=== PATIENT | female | born 1980 | race Caucasian/White ===

== ENCOUNTER 2016-09-17 21:23 | Emergency (ER) | payer OTHER ==
[2016-09-17 22:14] VITALS: BMI 24.7
[2016-09-17 22:17] VITALS: BP 124/69; PULSE 76; RESP 18; TEMP 98.3; O2SAT 98
[2016-09-17] MEDS ORDERED: Tmp-Smz 800 mg-160 mg DS Tab PO STA (23:10)
--- NOTE | 2016-09-17 23:11 | ED PDOC ---
Arrival/HPI <Snehal Anaya - Last Filed: 09/18/16 00:20> - General Historian: Patient - History of Present Illness Time/Duration: 1 week Symptom Onset: Gradual Symptom Course: Worsening Quality: Pressure, Throbbing Severity Level: 7 <Sahra Matute - Last Filed: 09/18/16 01:13> - General Chief Complaint: Abnormal Skin Integrity Time Seen by Provider: 09/17/16 23:10 - History of Present Illness Narrative History of Present Illness (Text): 09/18/16 00:36 36yr old female presents today with 1 week history of left axillary abscess. pt denies fever/chills. pt states lump started as small pimple and has gradually increased. no medications taken for pain at home. pt was seen by pmd 3 days ago and given rx for bactrim but she didnt take the medication. denies numbness, weakness, tingling in the extremity. no other complaints. (Sahra Matute) Past Medical History - Provider Review Nursing Documentation Reviewed: Yes - Travel History Have you recently traveled outside [place] w/in the past 3 mons?: No - Infectious Disease Hx of Infectious Diseases: None - Tetanus Immunization Tetanus Immunization: Unknown - Cardiac Hx Cardiac Disorders: No - Pulmonary Hx Respiratory Disorders: No - Neurological Hx Neurological Disorder: No - HEENT Hx HEENT Disorder: No - Renal Hx Renal Disorder: No - Endocrine/Metabolic Hx Endocrine Disorders: Yes Hx Hypothyroidism: Yes - Hematological/Oncological Hx Blood Disorders: No - Integumentary Hx Dermatological Disorder: No - Musculoskeletal/Rheumatological Hx Musculoskeletal Disorders: No - Gastrointestinal Hx Gastrointestinal Disorders: No - Genitourinary/Gynecological Hx Genitourinary Disorders: No - Psychiatric Hx Psychophysiologic Disorder: No Hx Substance Use: No - Surgical History Hx Section: Yes - Anesthesia Hx Anesthesia: Yes Hx Anesthesia Reactions: No Hx Malignant Hyperthermia: No <Sahra Matute - Last Filed: 09/18/16 01:13> Family/Social History - Physician Review Nursing Documentation Reviewed: Yes Family/Social History: Unknown Family HX Smoking Status: Never Smoked Hx Alcohol Use: No Hx Substance Use: No <Sahra Matute - Last Filed: 09/18/16 01:13> Allergies/Home Meds <Snehal Anaya - Last Filed: 09/18/16 00:20> <Sahra Matute - Last Filed: 09/18/16 01:13> Allergies/Adverse Reactions: Allergies No Known Allergies Allergy (Verified 06/19/16 11:08) Home Medications: Home Meds Medication Instructions Recorded Confirmed Levothyroxine [Synthroid] 50 mcg PO DAILY 03/17/16 06/19/16 Norethindrone-E.estradiol-Iron 1 tab PO DAILY 03/17/16 06/19/16 [Nilam Fe 1.5-30 Tablet] Review of Systems - Review of Systems Constitutional: absent: Fatigue, Fevers Respiratory: absent: SOB, Cough Cardiovascular: absent: Chest Pain, Palpitations Gastrointestinal: absent: Abdominal Pain, Nausea, Vomiting Skin: Abscess Neurological: absent: Headache, Dizziness Psychiatric: absent: Anxiety, Depression <Sahra Matute - Last Filed: 09/18/16 01:13> Physical Exam Vital Signs Reviewed: Yes Temperature: Afebrile Blood Pressure: Normal Pulse: Regular Respiratory Rate: Normal Appearance: Positive for: Well-Appearing, Non-Toxic, Comfortable Pain Distress: None Mental Status: Positive for: Alert and Oriented X 3 - Systems Exam Head: Present: Atraumatic Mouth: Present: Moist Mucous Membranes Respiratory/Chest: Present: Clear to Auscultation Cardiovascular: Present: Regular Rate and Rhythm Breast/Axillary: Present: Erythema, Fluctuance, Tender to Palpation (left axilla ; along the lateral chest wall of the axilla there is a 3cm round tender, erythematous fluctuant mass. ). No: Axillary Lymphad, Discoloration Neurological: Present: GCS=15 Skin: Present: Warm, Dry, Normal Color Psychiatric: Present: Alert, Oriented x 3 <Sahra Matute - Last Filed: 09/18/16 01:13> Vital Signs Temp Pulse Resp BP Pulse Ox 09/17/16 22:16 98.3 F 76 18 124/69 98 Medical Decision Making <Snehal Anaya - Last Filed: 09/18/16 00:20> <Sahra Matute - Last Filed: 09/18/16 01:13> ED Course and Treatment: 09/18/16 01:03 Patient is nontoxic well-appearing in no distress. Vital signs are stable. 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 return immediately if symptoms worsen persist or if new symptoms develop Patient verbalizes understanding of discharge instructions and need for immediate followup. all aspects of this case were discussed the attending of record. Impression: Abscess, axilla Motrin one tablet every 6 hours as needed for pain Bactrim DS: One tablet twice daily x7 days Warm compresses frequently Return in 2 days for packing removal and wound check Follow-up with the surgeon within the next 2 days Return immediately if symptoms worsen persist or if new symptoms develop: High fevers, increasing pain, increasing redness, swelling or if any other concerning symptoms develop. (Sahra Matute) - Medication Orders Current Medication Orders: Discontinued Medications Ketorolac Tromethamine (Toradol) 60 mg IM STAT STA Stop: 09/17/16 23:11 Last Admin: 09/17/16 23:44 Dose: 60 MG IM Administration Charges Document 09/17/16 23:44 EKEOO (Rec: 09/17/16 23:45 EKEOO [id number]) Injection Site MAR Injection Site Left Deltoid Charges for Administration # of IM Administrations 1 Trimethoprim/Sulfamethoxazole (Bactrim Ds Tab) 1 tab PO STAT STA PRN Reason: Protocol Stop: 09/17/16 23:11 Last Admin: 09/17/16 23:43 Dose: 1 TAB Procedures - Time-Out Type of Procedure: I&D of abscess Site of Procedure: Left axilla Correct Patient (with visual ID + MR# on ID Band): Yes Correct Procedure: Yes Correct Site Marked: Yes X-Ray Marked: NA Medication Reconciliation / Bloodwork / Allergies Checked: No Physician Name: Snehal Anaya PGY1 - Incision and Drainage Site: Left axilla Blade Size: 11 I & D Procedure: betadine prep, sterile drapes applied, sterile dressing applied , gauze wick placed <Snehal Anaya - Last Filed: 09/18/16 00:20> <Sahra Matute - Last Filed: 09/18/16 01:13> - Incision and Drainage Progress: 5cc of lidocaine was injected into the abscess surrounding tissue, a cruciate incision was made, 5-10cc's of sero-purulent drainage was expressed, all loculations were explored, and 1/4" iodoform gauze inserted. Wound was dressed with 4x4 dressings. Patient tolerated the procedure well. (Snehal Anaya) Disposition/Present on Arrival <Snehal Anaya - Last Filed: 09/18/16 00:20> - Present on Arrival Any Indicators Present on Arrival: No History of DVT/PE: No History of Uncontrolled Diabetes: No Urinary Catheter: No History of Decub. Ulcer: No History Surgical Site Infection Following: None - Disposition Have Diagnosis and Disposition been Completed?: Yes Disposition Time: 23:10 Patient Plan: Discharge <Sahra Matute Russ - Last Filed: 09/18/16 01:13> - Disposition Diagnosis: Abscess Disposition: HOME/ ROUTINE Condition: GOOD Discharge Instructions (ExitCare): Abscess (ED) Additional Instructions: Motrin one tablet every 6 hours as needed for pain Bactrim DS: One tablet twice daily x7 days Warm compresses and warm soaks frequently Return in 2 days for packing removal and wound check Follow up with the surgeon within the next 2 days. Return immediately if symptoms worsen persist or if new symptoms develop: High fevers, increasing pain, increasing redness, swelling or if any other concerning symptoms develop. Prescriptions: Sulfamethoxazole/Trimethoprim [Bactrim DS 800 mg-160 mg] 1 tab PO BID #14 tab Ibuprofen [Motrin] 600 mg PO Q6H PRN #20 tab PRN Reason: pain/fever reduction Referrals: Radha Vasquez MD [Primary Care Provider] - Follow up with primary Thomas Navarrete MD [Staff Provider] - Follow up with primary Forms: WORK NOTE
== END 2016-09-18 00:52 | disposition home or self-care (01) ==
LOC: ED 21:23
DX: L02.412 Cutaneous abscess of left axilla (principal)
CPT/HCPCS: 10060; 96372; 99282; J1885

== ENCOUNTER 2017-09-12 04:53 | Emergency (ER) | payer OTHER ==
[2017-09-12 04:54] VITALS: BMI 24.7
[2017-09-12 05:05] VITALS: O2SAT 100
[2017-09-12] MEDS ORDERED: Sodium Chloride 0.9% 1,000 ML IV STA ×2 (05:12→06:42)
--- NOTE | 2017-09-12 05:15 | ED PDOC ---
Arrival/HPI - General Chief Complaint: Abdominal Pain Time Seen by Provider: 09/12/17 05:09 Historian: Patient - History of Present Illness Narrative History of Present Illness (Text): 09/12/17 05:11 Giancarlo Sauceda is a 37 year old female, with no significant past medical history , who presents to the Emergency department complaining of abdominal discomfort.Patient had eaten at a restaurant earlier yesterday evening. Patient reports associated nausea, vomiting, and diarrhea. Patient denies any fever, chills, chest pain, shortness of breath, urinary symptoms, back pain, neck pain , headache, dizziness, or any other complaints. Time/Duration: 4-6 hours Symptom Onset: Gradual Symptom Course: Unchanged Activities at Onset: Eating Context: Home Past Medical History - Provider Review Nursing Documentation Reviewed: Yes - Infectious Disease Hx of Infectious Diseases: None - Tetanus Immunization Tetanus Immunization: Unknown - Cardiac Hx Cardiac Disorders: No - Pulmonary Hx Respiratory Disorders: No - Neurological Hx Neurological Disorder: No - HEENT Hx HEENT Disorder: No - Renal Hx Renal Disorder: No - Endocrine/Metabolic Hx Endocrine Disorders: Yes Hx Hypothyroidism: Yes - Hematological/Oncological Hx Blood Disorders: No - Integumentary Hx Dermatological Disorder: No - Musculoskeletal/Rheumatological Hx Musculoskeletal Disorders: No - Gastrointestinal Hx Gastrointestinal Disorders: No - Genitourinary/Gynecological Hx Genitourinary Disorders: No - Psychiatric Hx Psychophysiologic Disorder: No Hx Substance Use: No - Surgical History Hx Section: Yes - Anesthesia Hx Anesthesia: Yes Hx Anesthesia Reactions: No Hx Malignant Hyperthermia: No Family/Social History - Physician Review Nursing Documentation Reviewed: Yes Family/Social History: Unknown Family HX Smoking Status: Never Smoked Hx Alcohol Use: No Hx Substance Use: No Allergies/Home Meds Allergies/Adverse Reactions: Allergies No Known Allergies Allergy (Verified 09/12/17 05:57) Home Medications: Home Meds Medication Instructions Recorded Confirmed Levothyroxine [Synthroid] 50 mcg PO DAILY 03/17/16 09/12/17 Review of Systems - Physician Review All systems were reviewed & negative as marked: Yes - Review of Systems Constitutional: Normal. absent: Fevers Eyes: Normal ENT: Normal Respiratory: Normal. absent: SOB, Cough Cardiovascular: Normal. absent: Chest Pain Gastrointestinal: Abdominal Pain, Diarrhea, Nausea, Vomiting. absent: Food Intolerance Genitourinary Female: Normal. absent: Frequency, Hematuria, Urine Output Changes Musculoskeletal: Normal. absent: Back Pain, Neck Pain Skin: Normal. absent: Rash Neurological: Normal. absent: Headache, Dizziness Endocrine: Normal Hemo/Lymphatic: Normal Psychiatric: Normal Physical Exam Vital Signs Reviewed: Yes Vital Signs Temp Pulse Resp BP Pulse Ox 09/12/17 05:04 98.0 F 86 18 121/69 100 Temperature: Afebrile Blood Pressure: Normal Pulse: Regular Respiratory Rate: Normal Appearance: Positive for: Well-Appearing, Non-Toxic, Comfortable Pain Distress: None Mental Status: Positive for: Alert and Oriented X 3 - Systems Exam Head: Present: Atraumatic, Normocephalic Pupils: Present: PERRL Extroacular Muscles: Present: EOMI Conjunctiva: Present: Normal Mouth: Present: Moist Mucous Membranes Neck: Present: Normal Range of Motion Respiratory/Chest: Present: Clear to Auscultation, Good Air Exchange. No: Respiratory Distress, Accessory Muscle Use Cardiovascular: Present: Regular Rate and Rhythm, Normal S1, S2. No: Murmurs Abdomen: Present: Tenderness (mid/left abdomen). No: Distention, Peritoneal Signs, Rebound, Guarding Back: Present: Normal Inspection Upper Extremity: Present: Normal Inspection. No: Cyanosis, Edema Lower Extremity: Present: Normal Inspection. No: Edema Neurological: Present: GCS=15, CN II-XII Intact, Speech Normal, Motor Func Grossly Intact, Normal Sensory Function Skin: Present: Warm, Dry, Normal Color. No: Rashes Psychiatric: Present: Alert, Oriented x 3, Normal Insight, Normal Concentration Medical Decision Making ED Course and Treatment: 09/12/17 05:11 Impression: 37 year old female complaining of cramping abdominal discomfort, nausea, vomiting, and diarrhea since yesterday evening. Plan: -- Labs, lipase -- Urinalysis -- IV fluids -- Zofran -- Pepcid -- Reassess and disposition Progress Notes: 09/12/17 07:00 Case endorsed to /pending CT Abd/Pel/reassess/final disposition - Lab Interpretations Lab Results: 09/12/17 05:30 09/12/17 05:30 Lab Results 09/12/17 05:30: WBC 13.5 H, RBC 5.15, Hgb 14.3, Hct 41.8, MCV 81.2, MCH 27.8, MCHC 34.2, RDW 13.6, Plt Count 245, MPV 9.3 09/12/17 05:30: Sodium 143, Potassium 4.1, Chloride 105, Carbon Dioxide 25, Anion Gap 18, BUN 18, Creatinine 0.8, Est GFR ( Amer) > 60, Est GFR (Non- Af Amer) > 60, Random Glucose 112 H, Calcium 9.7, Total Bilirubin 0.6, AST 21, ALT 39, Alkaline Phosphatase 69, Total Protein 8.2, Albumin 4.8, Globulin 3.4, Albumin/Globulin Ratio 1.4, Lipase 83 09/12/17 05:30: Urine Color Yellow, Urine Appearance Sl cloudy, Urine pH 7.0, Ur Specific [place] 1.020, Urine Protein Trace H, Urine Glucose (UA) Negative, Urine Ketones 15 H, Urine Blood Small H, Urine Nitrate Negative, Urine Bilirubin Negative, Urine Urobilinogen 0.2, Ur Leukocyte Esterase Negative, Urine RBC 1 - 3, Urine WBC Negative, Ur Epithelial Cells 3 - 4, Calcium Oxalate Crystal Few, Urine Bacteria Mod, Urine Other Mucus, Urine HCG, Qual Negative I have reviewed the lab results: Yes - RAD Interpretation Radiology Orders: 09/12/17 06:41 ABD & PELVIS IV CONTRAST ONLY [CT] Stat - Medication Orders Current Medication Orders: Discontinued Medications Famotidine (Pepcid) 20 mg IVP STAT STA Stop: 09/12/17 05:13 Last Admin: 09/12/17 05:35 Dose: 20 mg IVP Administration Document 09/12/17 05:35 EMILY (Rec: 09/12/17 05:35 EMILY [id number]) Charges for Administration # of IVP Administrations 1 Sodium Chloride (Sodium Chloride 0.9%) 1,000 mls @ 999 mls/hr IV .Q1H1M STA Stop: 09/12/17 06:12 Last Admin: 09/12/17 05:34 Dose: 999 mls/hr eMAR Start Stop Document 09/12/17 05:34 EMILY (Rec: 09/12/17 05:35 EMILY [id number]) Intravenous Solution Start Date 09/12/17 Start Time 05:35 End Date 09/12/17 End time 06:35 Total Infusion Time 60 Ondansetron HCl (Zofran Inj) 4 mg IVP ONCE ONE Stop: 09/12/17 05:13 Last Admin: 09/12/17 05:35 Dose: 4 mg IVP Administration Document 09/12/17 05:35 EMILY (Rec: 09/12/17 05:35 EMILY [id number]) Charges for Administration # of IVP Administrations 1 - Scribe Statement The provider has reviewed the documentation as recorded by the Scribe Xiao Casas Provider Scribe Attestation: All medical record entries made by the Scribe were at my direction and personally dictated by me. I have reviewed the chart and agree that the record accurately reflects my personal performance of the history, physical exam, medical decision making, and the department course for this patient. I have also personally directed, reviewed, and agree with the discharge instructions and disposition. Disposition/Present on Arrival - Present on Arrival Any Indicators Present on Arrival: No History of DVT/PE: No History of Uncontrolled Diabetes: No Urinary Catheter: No History of Decub. Ulcer: No History Surgical Site Infection Following: None - Disposition Have Diagnosis and Disposition been Completed?: No Diagnosis: Abdominal pain, Vomiting, Diarrhea Disposition Time: 07:00 Condition: STABLE Forms: [employer] (Belarusian)
[2017-09-12 05:39] LABS: HEMOGLOBIN 14.3 g/dL (12.0-16.0); MEAN CELL VOLUME 81.2 fl (80.0-105.0); MEAN CORPUSCULAR HEMOGLOBIN 27.8 pg (25.0-35.0); MEAN CORPUSCULAR HGB CONC 34.2 g/dl (31.0-37.0); MEAN PLATELET VOLUME 9.3 fl (7.0-11.0); RBC 5.15 10^6/uL (3.5-6.1); RED CELL DISTRIBUTION WIDTH 13.6 % (11.5-14.5); WHITE BLOOD COUNT 13.5 10^3/ul (4.5-11.0)
[2017-09-12 05:40] LABS: URINE BILIRUBIN NEGATIVE (NEGATIVE); URINE BLOOD SMALL (NEGATIVE); URINE GLUCOSE (UA) NEGATIVE (NEGATIVE); URINE LEUKOCYTE ESTERASE NEGATIVE Leu/uL (NEGATIVE); URINE PROTEIN TRACE mg/dL (<30 mg/dL); URINE UROBILINOGEN 0.2 E.U./dL (<1 E.U./dL)
[2017-09-12 05:42] LABS: HCG,QUALITATIVE URINE NEGATIVE (NEGATIVE)
[2017-09-12 05:43] LABS: URINE APPEARANCE SL CLOUDY (CLEAR); URINE COLOR YELLOW (YELLOW)
[2017-09-12 06:05] LABS: URINE WBC NEGATIVE /hpf (0-6)
[2017-09-12 06:09] LABS: URINE CALCIUM OXALATE CRYSTALS FEW /hpf
[2017-09-12 06:12] LABS: URINE BACTERIA MOD (NEG)
[2017-09-12 06:27] LABS: ALB/GLOB RATIO 1.4 (1.1-1.8); ALBUMIN 4.8 g/dL (3.0-4.8); ALT/SGPT 39 U/L (7-56); AST/SGOT 21 U/L (14-36); BLOOD UREA NITROGEN 18 mg/dL (7-21); CALCIUM 9.7 mg/dL (8.4-10.5); GFR AFRICAN-AMERICAN > 60; GFR NON-AFRICAN AMERICAN > 60; LIPASE 83 U/L (23-300)
[2017-09-12] MEDS ORDERED: Iohexol 350 MG/100 ML VIAL ONE (06:47)
--- NOTE | 2017-09-12 07:41 | ED PDOC ---
Physical Exam Vital Signs Temp Pulse Resp BP Pulse Ox 09/12/17 07:47 78 20 114/69 100 09/12/17 05:04 98.0 F 86 18 121/69 100 Medical Decision Making ED Course and Treatment: 09/12/17 07:11 Patient endorsed to me by Dr. Ortega. Patient currently awaiting CT results , reassess and disposition. 09/12/2017 08:20 Abd/Pelvis CT IMPRESSION: 1. There are nonspecific fluid filled stomach, small bowel loops and colon with borderline bowel wall prominence. These findings can represent ileus versus gastroenteritis/ enterocolitis versus slow transit versus peristalsis. 2. Asymmetric prominence of left ovarian vein.There is borderline prominence of bilateral ovaries. Correlation with clinical data is recommended if polycystic ovarian disease is clinically suspected. Dictator: Te Brown MD 09/12/17 08:35 She states the pain has resolved. She states she's had only a few episodes of diarrhea since this started and it's been since yesterday evening. No travel. Possibly something she ate irritated her stomach. She is able to tolerating PO fluids. She does not have a fever, chills or bodyaches. Her abdomen is soft, nontender, nondistended. She appears well hydrated. Patient appears well. Non-toxic. CT results reviewed with patient. I advised her to return to the ED if symptoms persist for 1 week or more, she's unable to tolerate fluids, she develops a fever, she develops bloody diarrhea or any other concern. - Lab Interpretations Lab Results: 09/12/17 05:30 09/12/17 05:30 Lab Results 09/12/17 05:30: WBC 13.5 H, RBC 5.15, Hgb 14.3, Hct 41.8, MCV 81.2, MCH 27.8, MCHC 34.2, RDW 13.6, Plt Count 245, MPV 9.3 09/12/17 05:30: Sodium 143, Potassium 4.1, Chloride 105, Carbon Dioxide 25, Anion Gap 18, BUN 18, Creatinine 0.8, Est GFR ( Amer) > 60, Est GFR (Non- Af Amer) > 60, Random Glucose 112 H, Calcium 9.7, Total Bilirubin 0.6, AST 21, ALT 39, Alkaline Phosphatase 69, Total Protein 8.2, Albumin 4.8, Globulin 3.4, Albumin/Globulin Ratio 1.4, Lipase 83 09/12/17 05:30: Urine Color Yellow, Urine Appearance Sl cloudy, Urine pH 7.0, Ur Specific [place] 1.020, Urine Protein Trace H, Urine Glucose (UA) Negative, Urine Ketones 15 H, Urine Blood Small H, Urine Nitrate Negative, Urine Bilirubin Negative, Urine Urobilinogen 0.2, Ur Leukocyte Esterase Negative, Urine RBC 1 - 3, Urine WBC Negative, Ur Epithelial Cells 3 - 4, Calcium Oxalate Crystal Few, Urine Bacteria Mod, Urine Other Mucus, Urine HCG, Qual Negative - RAD Interpretation Radiology Orders: 09/12/17 06:41 ABD & PELVIS IV CONTRAST ONLY [CT] Stat - Medication Orders Current Medication Orders: Discontinued Medications Famotidine (Pepcid) 20 mg IVP STAT STA Stop: 09/12/17 05:13 Last Admin: 09/12/17 05:35 Dose: 20 mg IVP Administration Document 09/12/17 05:35 EMILY (Rec: 09/12/17 05:35 EMILY [id number]) Charges for Administration # of IVP Administrations 1 Sodium Chloride (Sodium Chloride 0.9%) 1,000 mls @ 999 mls/hr IV .Q1H1M STA Stop: 09/12/17 06:12 Last Admin: 09/12/17 05:34 Dose: 999 mls/hr eMAR Start Stop Document 09/12/17 05:34 EMILY (Rec: 09/12/17 05:35 EMILY [facility]) Intravenous Solution Start Date 09/12/17 Start Time 05:35 End Date 09/12/17 End time 06:35 Total Infusion Time 60 Sodium Chloride (Sodium Chloride 0.9%) 1,000 mls @ 999 mls/hr IV .Q1H1M STA Stop: 09/12/17 07:42 Last Admin: 09/12/17 07:40 Dose: 999 mls/hr eMAR Start Stop Document 09/12/17 07:40 AGUILA (Rec: 09/12/17 07:41 AGUILA [id number]) Intravenous Solution Start Date 09/12/17 Start Time 07:41 End Date 09/12/17 End time 08:41 Total Infusion Time 60 Ketorolac Tromethamine (Toradol) 30 mg IVP ONCE ONE Stop: 09/12/17 07:08 Last Admin: 09/12/17 07:39 Dose: 30 mg MAR Pain Assessment Document 09/12/17 07:39 AGUILA (Rec: 09/12/17 07:40 AGUILA [id number]-PC) Pain Reassessment Is this a pain reassessment? No Sleep Is patient sleeping during reassessment? No Presence of Pain Presence of Pain Yes Pain Scale Used Pain Scale Used Numeric Description Description Intermittent Intensity of Pain at present 3 IVP Administration Document 09/12/17 07:39 AGUILA (Rec: 09/12/17 07:40 AGUILA [id number]) Charges for Administration # of IVP Administrations 1 Ondansetron HCl (Zofran Inj) 4 mg IVP ONCE ONE Stop: 09/12/17 05:13 Last Admin: 09/12/17 05:35 Dose: 4 mg IVP Administration Document 09/12/17 05:35 EMILY (Rec: 09/12/17 05:35 EMILY [id number]) Charges for Administration # of IVP Administrations 1 - Scribe Statement The provider has reviewed the documentation as recorded by the Elise Simental Provider Scribe Attestation: All medical record entries made by the Scribe were at my direction and personally dictated by me. I have reviewed the chart and agree that the record accurately reflects my personal performance of the history, physical exam, medical decision making, and the department course for this patient. I have also personally directed, reviewed, and agree with the discharge instructions and disposition. Disposition/Present on Arrival - Present on Arrival Any Indicators Present on Arrival: No History of DVT/PE: No History of Uncontrolled Diabetes: No Urinary Catheter: No History of Decub. Ulcer: No History Surgical Site Infection Following: None - Disposition Have Diagnosis and Disposition been Completed?: Yes Diagnosis: Abdominal pain, Vomiting, Diarrhea Disposition Time: 08:37 Patient Plan: Discharge Patient Problems: Current Active Problems Problem Status Onset Abdominal pain Acute Vomiting Acute Diarrhea Acute Condition: IMPROVED Discharge Instructions (ExitCare): Diarrhea in Adolescents and Adults, Acute Abdomen (Belly Pain) Additional Instructions: Ms Sauceda, thank you for letting us take care of you today. Your provider was Dr. Corey. You were treated for Abdominal Pain. The emergency medical care you received today was directed at your acute symptoms. If you were prescribed any medication, please fill it and take as directed. It may take several days for your symptoms to resolve. Return to the Emergency Department if your symptoms worsen, do not improve, or if you have any other problems. Please contact your doctor or call one of the physicians/clinics you have been referred to that are listed on the Patient Visit Information form that is included in your discharge packet. Bring any paperwork you were given at discharge with you along with any medications you are taking to your follow up visit. Our treatment cannot replace ongoing medical care by a primary care provider (PCP) outside of the emergency department. Thank you for allowing the [facility] team to be part of your care today. If you had an X-Ray or CT scan: A Radiologist will review the ED reading if any change in treatment is needed we will contact you. If you had a blood, urine, or wound culture: It will take several days for the results, if any change in treatment is needed we will contact you. If you had an STI test: It will take 48 hours for the results. Please call after 1 week if you have not heard back. Prescriptions: Ranitidine HCl [Zantac] 150 mg PO BID PRN #30 tablet PRN Reason: Pain, Mild (1-3) Referrals: Radha Vasquez MD [Family Provider] - Follow up with primary Forms: [employer] (Egyptian), WORK NOTE
--- NOTE | 2017-09-12 08:21 | CT ---
EXAM: CT Abdomen and Pelvis With Intravenous Contrast CLINICAL HISTORY: 37 years old, female; Pain; Abdominal pain; Generalized; Prior surgery; Surgery date: 6+ months; Surgery type: TECHNIQUE: Axial computed tomography images of the abdomen and pelvis with intravenous contrast. All CT scans at this facility use one or more dose reduction techniques, viz.: automated exposure control; ma/kV adjustment per patient size (including targeted exams where dose is matched to indication; i.e. head); or iterative reconstruction technique. 567 images are submitted. Coronal and sagittal reformatted images were created and reviewed. CONTRAST: 100 mL of omnipaque 350 administered intravenously. COMPARISON: No relevant prior studies available. FINDINGS: Lung bases: There is bibasilar atelectasis. Mediastinum: Moderate hiatal hernia with wall thickening. This could be due to underdistention. Correlation with clinical data is recommended if esophagitis/gastritis is clinically suspected. ABDOMEN: Liver: Fatty liver. Gallbladder and bile ducts: Unremarkable. No ductal dilation. Pancreas: Unremarkable. No mass. No ductal dilation. Spleen: Unremarkable. No splenomegaly. Adrenals: Unremarkable. No mass. Kidneys and ureters: There are bilateral subcentimeter renal hypodensities too small to characterize but likely represents renal cyst. No hydronephrosis. Stomach and bowel: There are nonspecific fluid filled stomach, small bowel loops and colon with borderline bowel wall prominence. These findings can represent ileus versus gastroenteritis/enterocolitis versus slow transit versus peristalsis. Possible diverticulosis. No obstruction. Appendix: Normal appendix. PELVIS: Bladder: Partially decompressed bladder with bladder wall thickening. Correlation with urinalysis is recommended only if clinical cystitis is suspected. Reproductive: The uterus is seen.There is borderline prominence of bilateral ovaries. Correlation with clinical data is recommended if polycystic ovarian disease is suspected. ABDOMEN and PELVIS: Intraperitoneal space: Unremarkable. No free air. No significant fluid collection. Bones/joints: No acute fracture. No dislocation. Soft tissues: Unremarkable. Vasculature: Prominent left ovarian vein the etiology of which is uncertain. No abdominal aortic aneurysm. Lymph nodes: Unremarkable. No enlarged lymph nodes. IMPRESSION: 1. There are nonspecific fluid filled stomach, small bowel loops and colon with borderline bowel wall prominence. These findings can represent ileus versus gastroenteritis/enterocolitis versus slow transit versus peristalsis. 2. Asymmetric prominence of left ovarian vein.There is borderline prominence of bilateral ovaries. Correlation with clinical data is recommended if polycystic ovarian disease is clinically suspected.
[2017-09-12 08:57] VITALS: BP 121/70; PULSE 70; RESP 18; TEMP 98.6
== END 2017-09-12 09:31 | disposition home or self-care (01) ==
LOC: ED 04:53
DX: R11.2 Nausea with vomiting, unspecified (principal); R19.7 Diarrhea, unspecified; R10.9 Unspecified abdominal pain; E03.9 Hypothyroidism, unspecified
CPT/HCPCS: 74177; 80053; 81001; 83690; 84703; 85027; 96361; 96374; 96375; 99284; J1885; J2405; J7040; Q9967

== ENCOUNTER 2017-11-28 22:05 | Emergency (ER) | payer OTHER ==
[2017-11-28 22:36] VITALS: BMI 26.5
--- NOTE | 2017-11-29 00:16 | ED PDOC ---
Arrival/HPI - General Chief Complaint: Lower Extremity Problem/Injury Time Seen by Provider: 11/28/17 22:51 Historian: Patient - History of Present Illness Narrative History of Present Illness (Text): 11/28/17 22:57 Estephania Elizondo is a 37 year old female who presents to the Emergency department complaining of left foot pain with burning sensation in digits 3-5 today. Patient states she twisted her left ankle while at an even this afternoon, was evaluated by a medic at the scene. Patient was given ice, had the leg elevated, and was advised to come to the emergency room. Patient denies any difficulty ambulating, difficulty bearing weight on the foot, loss of sensation, head injury, loss of consciousness, or any other complaints. Time/Duration: Prior to Arrival Symptom Onset: Sudden Symptom Course: Unchanged Activities at Onset: Light Past Medical History - Provider Review Nursing Documentation Reviewed: Yes - Infectious Disease Hx of Infectious Diseases: None - Tetanus Immunization Tetanus Immunization: Unknown - Cardiac Hx Cardiac Disorders: No - Pulmonary Hx Respiratory Disorders: No - Neurological Hx Neurological Disorder: No - HEENT Hx HEENT Disorder: No - Renal Hx Renal Disorder: No - Endocrine/Metabolic Hx Endocrine Disorders: Yes Hx Hypothyroidism: Yes - Hematological/Oncological Hx Blood Disorders: No - Integumentary Hx Dermatological Disorder: No - Musculoskeletal/Rheumatological Hx Musculoskeletal Disorders: No - Gastrointestinal Hx Gastrointestinal Disorders: No - Genitourinary/Gynecological Hx Genitourinary Disorders: No - Psychiatric Hx Psychophysiologic Disorder: No Hx Substance Use: No - Surgical History Hx Section: Yes - Anesthesia Hx Anesthesia: Yes Hx Anesthesia Reactions: No Hx Malignant Hyperthermia: No Family/Social History - Physician Review Nursing Documentation Reviewed: Yes Family/Social History: Unknown Family HX Smoking Status: Never Smoked Hx Alcohol Use: No Hx Substance Use: No Allergies/Home Meds Allergies/Adverse Reactions: Allergies No Known Allergies Allergy (Verified 11/28/17 22:36) Home Medications: Home Meds Medication Instructions Recorded Confirmed Levothyroxine [Synthroid] 50 mcg PO DAILY 03/17/16 11/28/17 Review of Systems - Physician Review All systems were reviewed & negative as marked: Yes - Review of Systems Constitutional: Normal. absent: Fevers Eyes: Normal ENT: Normal Respiratory: Normal. absent: SOB, Cough Cardiovascular: Normal. absent: Chest Pain Gastrointestinal: Normal. absent: Abdominal Pain, Diarrhea, Nausea, Vomiting Genitourinary Female: Normal. absent: Dysuria, Frequency, Hematuria, Urine Output Changes Musculoskeletal: Arthralgias (+left foot pain). absent: Back Pain, Neck Pain Skin: Normal. absent: Rash Neurological: Normal. absent: Headache, Dizziness Endocrine: Normal Hemo/Lymphatic: Normal Psychiatric: Normal Physical Exam Vital Signs Reviewed: Yes Vital Signs Temp Pulse Resp BP Pulse Ox 11/29/17 00:45 98.5 F 72 18 110/78 100 Temperature: Afebrile Blood Pressure: Normal Pulse: Regular Respiratory Rate: Normal Appearance: Positive for: Well-Appearing, Non-Toxic, Comfortable Pain Distress: None Mental Status: Positive for: Alert and Oriented X 3 - Systems Exam Head: Present: Atraumatic, Normocephalic Neck: Present: Normal Range of Motion Lower Extremity: Present: Edema (Mild edema to left lateral malleolus), NORMAL PULSES, Neurovascularly Intact (Sensaton intact), Other (Motor function 4/5 in left lower extremity). No: Erythema, Deformity Neurological: Present: GCS=15, CN II-XII Intact, Speech Normal Skin: Present: Warm, Dry, Normal Color. No: Rashes Psychiatric: Present: Alert, Oriented x 3, Normal Insight, Normal Concentration Medical Decision Making ED Course and Treatment: 11/28/17 22:57 Impression: 37 year old female presents for left foot pain s/p twisting her foot. Plan: -- XR Left Ankle -- XR Left Foot -- Reassess and disposition Progress Notes: Reviewed radiology, XR Left Ankle shows no acute fracture/no acute processes. XR Left Foot shows no acute fracture/no acute processes. Dw pt and advised ice, rest and elevation f/u with PMD for further evaluation may require MRI and PT if pain continues Pt ambulated well on d/c - RAD Interpretation Radiology Orders: 11/28/17 22:52 ANKLE LEFT 3 VIEWS ROUTINE [RAD] Stat 11/28/17 22:57 FOOT LEFT 3 VIEWS ROUTINE [RAD] Stat Pit Steward: ED Physician - Scribe Statement The provider has reviewed the documentation as recorded by the Scribe Xiao Casas All medical record entries made by the Scribe were at my direction and personally dictated by me. I have reviewed the chart and agree that the record accurately reflects my personal performance of the history, physical exam, medical decision making, and the department course for this patient. I have also personally directed, reviewed, and agree with the discharge instructions and disposition. Disposition/Present on Arrival - Present on Arrival Any Indicators Present on Arrival: Yes History of DVT/PE: No History of Uncontrolled Diabetes: No Urinary Catheter: No History of Decub. Ulcer: No History Surgical Site Infection Following: None - Disposition Have Diagnosis and Disposition been Completed?: Yes Diagnosis: Moderate ankle sprain, Sprain of foot, left Disposition: HOME/ ROUTINE Disposition Time: 00:25 Condition: STABLE Discharge Instructions (ExitCare): Ankle Sprain (DC), Foot Sprain (DC) Additional Instructions: ESTEPHANIA ELIZONDO, thank you for letting us take care of you today. Your provider was Mike Haywood MD and [place] [facility] and you were treated for ANKLE AND FOOT SPRAIN. The emergency medical care you received today was directed at your acute symptoms. If you were prescribed any medication, please fill it and take as directed. It may take several days for your symptoms to resolve. Return to the Emergency Department if your symptoms worsen, do not improve, or if you have any other problems. CONTINUE TO ELEVATE AND ICE THE LEFT FOOT; TAKE MOTRIN FOR PAIN AND SWELLING NEEDED SEE YOUR PRIMARY CARE DOCTOR IN THE NEXT 2 DAYS FOR FOLLOW UP CARE Please contact your doctor or call one of the physicians/clinics you have been referred to that are listed on the Patient Visit Information form that is included in your discharge packet. Bring any paperwork you were given at discharge with you along with any medications you are taking to your follow up visit. Our treatment cannot replace ongoing medical care by a primary care provider outside of the emergency department. Thank you for allowing the [facility] team to be part of your care today. If you had an X-Ray or CT scan: A Radiologist will review the ED reading if any change in treatment is needed we will contact you. If you had a blood, urine, or wound culture: It will take several days for the results, if any change in treatment is needed we will contact you. Prescriptions: Ibuprofen [Motrin Tab] 600 mg PO Q6 PRN 5 Days #20 tab PRN Reason: pain/fever Forms: [employer] ([place])
[2017-11-29 01:08] VITALS: BP 110/78; PULSE 72; RESP 18; TEMP 98.5; O2SAT 100
--- NOTE | 2017-11-29 07:28 | RAD ---
PROCEDURE: Left Ankle Radiographs. HISTORY: injury COMPARISON: None FINDINGS: BONES: No acute fracture or destructive bony lesion identified. JOINTS: Normal. No osteoarthritis. Ankle mortise maintained. Talar dome intact SOFT TISSUES: Normal. OTHER FINDINGS: None. IMPRESSION: Normal left ankle radiographs.
--- NOTE | 2017-11-29 07:28 | RAD ---
PROCEDURE: Left Foot Radiographs. HISTORY: Injury COMPARISON: None. FINDINGS: BONES: No acute fracture or destructive bony lesion identified. JOINTS: Normal. SOFT TISSUES: Normal. OTHER FINDINGS: None. IMPRESSION: Normal left foot radiographs.
== END 2017-11-29 00:45 | disposition home or self-care (01) ==
LOC: ED 22:05
DX: S93.402A Sprain of unspecified ligament of left ankle, initial encounter (principal); S93.602A Unspecified sprain of left foot, initial encounter; X50.1XXA Overexertion from prolonged static or awkward postures, initial encounter; Y92.89 Other specified places as the place of occurrence of the external cause

== ENCOUNTER 2018-08-22 18:45 | Emergency (ER) | payer OTHER ==
[2018-08-22 19:12] VITALS: BMI 26.9
[2018-08-22 19:18] VITALS: TEMP 98.7
[2018-08-22] MEDS ORDERED: Sodium Chloride 0.9% 1,000 ML IV STA (20:51)
[2018-08-22 21:32] LABS: BASO # 0.02 K/mm3 (0.0-2.0); BASO % 0.2 % (0.0-3.0); EOS # 0.2 (0.0-0.7); EOS % 2.6 % (1.5-5.0); HEMOGLOBIN 14.1 g/dL (12.0-16.0); LYMPH # 4.1 (1.2-3.4); LYMPH % 48.5 % (22.0-35.0); MEAN CELL VOLUME 83.9 fl (80.0-105.0); MEAN CORPUSCULAR HEMOGLOBIN 27.8 pg (25.0-35.0); MEAN CORPUSCULAR HGB CONC 33.1 g/dl (31.0-37.0); MEAN PLATELET VOLUME 9.5 fl (7.0-11.0); MONO # 0.6 (0.1-0.6); MONO % 6.6 % (1.0-6.0); RBC 5.08 10^6/uL (3.5-6.1); RED CELL DISTRIBUTION WIDTH 13.7 % (11.5-14.5); WHITE BLOOD COUNT 8.5 10^3/uL (4.5-11.0)
[2018-08-22 21:43] LABS: ALB/GLOB RATIO 1.1 (1.1-1.8); ALBUMIN 4.2 g/dL (3.0-4.8); ALT/SGPT 30 U/L (7-56); AST/SGOT 28 U/L (14-36); BLOOD UREA NITROGEN 14 mg/dL (7-21); CALCIUM 9.6 mg/dL (8.4-10.5); GFR NON-AFRICAN AMERICAN > 60
[2018-08-22] MEDS ORDERED: Iohexol 350 MG/100 ML VIAL ONE (22:01)
[2018-08-22 22:07] LABS: INR 1.1; PARTIAL THROMBOPLASTIN TIME 35.6 Seconds (26.9-38.3); PROTHROMBIN TIME 12.2 SECONDS (9.4-12.5)
[2018-08-22 22:49] VITALS: BP 126/77; PULSE 88; RESP 16; O2SAT 100
--- NOTE | 2018-08-22 23:52 | ED PDOC ---
Arrival/HPI - General Chief Complaint: Trauma Time Seen by Provider: 08/22/18 19:16 Historian: Patient - History of Present Illness Narrative History of Present Illness (Text): 08/22/18 20:30 37 year old female presents to the emergency department today with headache, nausea, right-sided neck pain, and abdominal pain s/p slip and fall in the tub 1 week ago. Patient states she lost consciousness for a few moments when she fell. She said she hit the right side of her head and hit her abdomen across the sink. Patient states she has been eating and drinking well. She denies any vomiting, but feels nauseous and dizzy. Patient was seen by her PMD and was advised to come to the ER for further evaluation. Patient denies any vomiting, back pain, blurred vision, or any other complaints. PMD: Dr. Vasquez Time/Duration: 1 week Symptom Onset: Gradual Symptom Course: Unchanged Activities at Onset: Light Context: Slipped Past Medical History - Provider Review Nursing Documentation Reviewed: Yes - Infectious Disease Hx of Infectious Diseases: None - Tetanus Immunization Tetanus Immunization: Unknown - Cardiac Hx Cardiac Disorders: No - Pulmonary Hx Respiratory Disorders: No - Neurological Hx Neurological Disorder: No - HEENT Hx HEENT Disorder: No - Renal Hx Renal Disorder: No - Endocrine/Metabolic Hx Endocrine Disorders: Yes Hx Hypothyroidism: Yes - Hematological/Oncological Hx Blood Disorders: No - Integumentary Hx Dermatological Disorder: No - Musculoskeletal/Rheumatological Hx Musculoskeletal Disorders: No - Gastrointestinal Hx Gastrointestinal Disorders: No - Genitourinary/Gynecological Hx Genitourinary Disorders: No - Psychiatric Hx Psychophysiologic Disorder: No Hx Substance Use: No - Surgical History Hx Section: Yes - Anesthesia Hx Anesthesia: Yes Hx Anesthesia Reactions: No Hx Malignant Hyperthermia: No Family/Social History - Physician Review Nursing Documentation Reviewed: Yes Family/Social History: No Known Family HX Smoking Status: Never Smoked Hx Alcohol Use: No Hx Substance Use: No Allergies/Home Meds Allergies/Adverse Reactions: Allergies No Known Allergies Allergy (Verified 08/22/18 19:12) Home Medications: Home Meds Medication Instructions Recorded Confirmed Levothyroxine [Synthroid] 50 mcg PO DAILY 03/17/16 08/22/18 Review of Systems - Physician Review All systems were reviewed & negative as marked: Yes - Review of Systems Constitutional: absent: Fatigue, Fevers Eyes: absent: Vision Changes ENT: absent: Sore Throat, Sinus Congestion Respiratory: absent: SOB, Cough Cardiovascular: absent: Chest Pain, Palpitations Gastrointestinal: Abdominal Pain, Nausea. absent: Constipation, Diarrhea, Vomiting Genitourinary Female: absent: Dysuria, Frequency, Hematuria Musculoskeletal: Neck Pain. absent: Arthralgias, Back Pain Skin: absent: Rash, Pruritis Neurological: Headache, Dizziness Psychiatric: absent: Anxiety, Depression Physical Exam Vital Signs Reviewed: Yes Vital Signs Temp Pulse Resp BP Pulse Ox 08/22/18 22:49 88 16 126/77 100 08/22/18 19:17 98.7 F 80 18 119/77 97 Temperature: Afebrile Blood Pressure: Normal Pulse: Regular Respiratory Rate: Normal Appearance: Positive for: Well-Appearing, Non-Toxic, Comfortable Pain Distress: None Mental Status: Positive for: Alert and Oriented X 3 - Systems Exam Head: Present: Atraumatic, Normocephalic. No: Tenderness, Swelling Pupils: Present: PERRL Extroacular Muscles: Present: EOMI Conjunctiva: Present: Normal Mouth: Present: Moist Mucous Membranes Pharnyx: Present: Normal Nose (External): Present: Atraumatic Nose (Internal): Present: Normal Inspection Neck: Present: Normal Range of Motion, Paraspinal Tenderness (slight right-side paraspinal/trapezius tenderness), Trachea Midline. No: MIDLINE TENDERNESS (no midline bony tenderness) Respiratory/Chest: Present: Clear to Auscultation, Good Air Exchange. No: Respiratory Distress, Accessory Muscle Use, Tender to Palpation, Other (ecchymosis) Cardiovascular: Present: Regular Rate and Rhythm, Normal S1, S2. No: Murmurs Abdomen: Present: Tenderness (left-sided mid abdominal tenderness. Healing ecchymosis noted left mid abdomen). No: Distention, Peritoneal Signs, Rebound, Guarding Back: No: Midline Tenderness (No thoracic or lumbar midline tenderness), Paraspinal Tenderness Upper Extremity: Present: Normal Inspection, Normal ROM Lower Extremity: Present: Normal Inspection, Normal ROM Neurological: Present: GCS=15, Speech Normal, Motor Func Grossly Intact, Gait Normal Skin: Present: Warm, Dry, Normal Color. No: Rashes Psychiatric: Present: Alert, Oriented x 3 Medical Decision Making ED Course and Treatment: 08/22/18 20:30 Impression: 37 year old female presents complaining of headache, nausea, right-sided neck pain, and abdominal pain s/p slip and fall in the tub 1 week ago. Plan: -- CT Abd and pelvis IV Contrast -- CT Head w/o contrast -- Labs -- IV Fluids -- Reassess and disposition Progress Notes: EXAM: CT Head without Intravenous Contrast. Electronically signed on Aug 22, 2018 10:37:33 PM EDT by: Anoop Fermin M.D. IMPRESSION: No acute intracranial abnormality. EXAM: CT Abdomen and Pelvis with IV contrast Electronically signed on Aug 22, 2018 10:46:49 PM EDT by: Anoop Fermin M.D. IMPRESSION: 1. Findings suggestive of mild diffuse enteritis. 2. Very small hiatal hernia. CBC within normal limits CMP within normal limits PT/INR within normal limits patient was given Toradol for pain. 08/23/18 00:14 Patient reassessment: Patient is feeling better after medications vitals are stable. I discussed all results in depth with the patient advised follow-up with primary care physician within the next 2 days. Advised follow-up with a neurologist. Advised to return if symptoms worsen persist or if new concerning symptoms develop Patient verbalizes understanding of discharge instructions and need for immediate followup. All aspects of this case were discussed the attending of record. Impression: Head injury, abdominal pain, neck pain Tylenol every 4 hours as needed for pain Follow-up with primary care physician within the next 2 days Follow-up with a neurologist within the next 2 days Return immediately if symptoms worsen persist or if new concerning symptoms develop Reassessment Condition: Re-examined, Improved - Lab Interpretations Lab Results: PT 12.2 SECONDS (9.4-12.5) 08/22/18 21:18 INR 1.10 08/22/18 21:18 APTT 35.6 Seconds (26.9-38.3) 08/22/18 21:18 Total Bilirubin 0.3 mg/dL (0.2-1.3) 08/22/18 21:18 AST 28 U/L (14-36) 08/22/18 21:18 ALT 30 U/L (7-56) 08/22/18 21:18 Alkaline Phosphatase 58 U/L (38-126) 08/22/18 21:18 Total Protein 8.0 g/dL (5.8-8.3) 08/22/18 21:18 Albumin 4.2 g/dL (3.0-4.8) 08/22/18 21:18 Globulin 3.8 gm/dL 08/22/18 21:18 Albumin/Globulin Ratio 1.1 (1.1-1.8) 08/22/18 21:18 I have reviewed the lab results: Yes - RAD Interpretation Radiology Orders: 08/22/18 20:51 ABD & PELVIS IV CONTRAST ONLY [CT] Stat HEAD W/O CONTRAST [CT] Stat Artist Suspect: Radiologist - Medication Orders Current Medication Orders: Discontinued Medications Sodium Chloride (Sodium Chloride 0.9%) 1,000 mls @ 999 mls/hr IV .Q1H1M STA Stop: 08/22/18 21:51 Last Admin: 08/22/18 21:05 Dose: 999 mls/hr eMAR Start Stop Document 08/22/18 21:05 EB (Rec: 08/22/18 21:06 [id number]) Intravenous Solution Start Date 08/22/18 Start Time 21:05 - Scribe Statement The provider has reviewed the documentation as recorded by the Elise Enriquez Provider Scribe Attestation: All medical record entries made by the Elise were at my direction and personally dictated by me. I have reviewed the chart and agree that the record accurately reflects my personal performance of the history, physical exam, medical decision making, and the department course for this patient. I have also personally directed, reviewed, and agree with the discharge instructions and disposition. Disposition/Present on Arrival - Present on Arrival Any Indicators Present on Arrival: No History of DVT/PE: No History of Uncontrolled Diabetes: No Urinary Catheter: No History of Decub. Ulcer: No History Surgical Site Infection Following: None - Disposition Have Diagnosis and Disposition been Completed?: Yes Diagnosis: Head injury, Abdominal pain, Headache, Nausea Disposition: HOME/ ROUTINE Disposition Time: 00:15 Patient Plan: Discharge Condition: GOOD Discharge Instructions (ExitCare): Concussion, Adult (DC), Acute Abdomen (Belly Pain), Adult (DC) Additional Instructions: Tylenol every 4 hours as needed for pain Follow-up with primary care physician within the next 2 days Follow-up with a neurologist within the next 2 days Return immediately if symptoms worsen persist or if new concerning symptoms develop Referrals: Radha Vasquez MD [Family Provider] - Follow up with primary Al Huitron MD [Staff Provider] - Follow up with primary Forms: [employer] (Citizen [place]), WORK NOTE
--- NOTE | 2018-08-23 09:21 | CT ---
Date of service: 08/22/2018 PROCEDURE: CT HEAD WITHOUT CONTRAST. HISTORY: headache/dizziness COMPARISON: 03/17/2016 TECHNIQUE: Axial computed tomography images were obtained through the head/brain without intravenous contrast. Radiation dose: Total exam DLP = 757.74 mGy-cm. This CT exam was performed using one or more of the following dose reduction techniques: Automated exposure control, adjustment of the mA and/or kV according to patient size, and/or use of iterative reconstruction technique. FINDINGS: HEMORRHAGE: No intracranial hemorrhage. BRAIN: No mass effect or edema. No atrophy or chronic microvascular ischemic changes. VENTRICLES: Unremarkable. No hydrocephalus. CALVARIUM: Unremarkable. PARANASAL SINUSES: Unremarkable as visualized. No significant inflammatory changes. MASTOID AIR CELLS: Unremarkable as visualized. No inflammatory changes. OTHER FINDINGS: The report concurs with the preliminary [facility] report IMPRESSION: Normal CT of the Head.
--- NOTE | 2018-08-23 09:28 | CT ---
Date of service: 08/22/2018 PROCEDURE: CT Abdomen and Pelvis with contrast HISTORY: abd pain, fall, abdominal injury/ trauma 1 wk ago COMPARISON: None. TECHNIQUE: Contrast dose: 100 cc of Omni 350 Radiation dose: Total exam DLP = 752.03 mGy-cm. This CT exam was performed using one or more of the following dose reduction techniques: Automated exposure control, adjustment of the mA and/or kV according to patient size, and/or use of iterative reconstruction technique. FINDINGS: LOWER THORAX: Unremarkable. LIVER: Unremarkable. No gross lesion or ductal dilatation. GALLBLADDER AND BILE DUCTS: Unremarkable. PANCREAS: Unremarkable. No gross lesion or ductal dilatation. SPLEEN: Unremarkable. ADRENALS: Unremarkable. No mass. KIDNEYS AND URETERS: Unremarkable. No hydronephrosis. No solid mass. VASCULATURE: Unremarkable. No aortic aneurysm. No aortic atherosclerotic calcification or mural plaque present. BOWEL: Unremarkable. No obstruction. No gross mural thickening. APPENDIX: Normal appendix. PERITONEUM: Unremarkable. No free fluid. No free air. LYMPH NODES: Unremarkable. No enlarged lymph nodes. BLADDER: Unremarkable. REPRODUCTIVE: Unremarkable. BONES: No acute fracture. OTHER FINDINGS: The report concurs with the preliminary [facility] report IMPRESSION: Unremarkable contrast enhanced CT of the abdomen and pelvis.
== END 2018-08-23 00:30 | disposition home or self-care (01) ==
LOC: ED 18:45
DX: S09.90XA Unspecified injury of head, initial encounter (principal); W18.2XXA Fall in (into) shower or empty bathtub, initial encounter; Y93.E1 Activity, personal bathing and showering; Y92.002 Bathroom of unspecified non-institutional (private) residence as the place of occurrence of the external cause; R51 Headache; R10.9 Unspecified abdominal pain; R11.0 Nausea
CPT/HCPCS: 70450; 74177; 80053; 81025; 85025; 85610; 85730; 96374; 99284; J1885; J7030; Q9967